=== PATIENT | female | born 1970 | race Two or more races ===

== ENCOUNTER 2022-08-01 10:54 | Inpatient (IN) | payer OTHER ==
[~2022-08-01] VITALS: Ht 160 cm; Wt 119.2 kg
[2022-08-01 12:04] LABS: Basophils # (auto) 0 10 ^3/uL (0-0.2); Basophils % (auto) 0.4 % (0.0-2.0); Eosinophils # (auto) 0.1 10 ^3/uL (0-0.8); Eosinophils % (auto) 0.6 % (0.0-7.0); Hematocrit 41.3 % (36.0-46.0); Hemoglobin 13.6 g/dL (12.2-16.2); Lymphocytes # (auto) 1.7 10 ^3/uL (0.4-5.4); Lymphocytes % (auto) 15.5 % (10.0-50.0); Mean Corpuscular Hemoglobin 28.9 pg (28.0-32.0); Mean Corpuscular Hgb Conc. 32.9 g/dL (32.0-36.0); Mean Corpuscular Volume 87.9 fL (80.0-100.0); Monocytes # (auto) 0.9 10 ^3/uL (0-1.3); Monocytes % (auto) 7.8 % (0.0-12.0); Neutrophils # (auto) 8.5 10 ^3/uL (1.6-8.6); Neutrophils % (auto) 75.7 % (37.0-80.0); Red Cell Distribution Width 13.5 % (11.8-14.3); White Blood Cell 11.2 10^3/uL (4.4-10.8)
[2022-08-01 12:14] LABS: Albumin 3.9 g/dL (3.4-5.0); Calcium 8.8 mg/dL (8.5-10.1)
[2022-08-01] MEDS ORDERED: FAMOTIDINE (10MG/ML) 2ML VL IV ONE (12:15)
[2022-08-01] MEDS ORDERED: DexAMETHasone SOD PHOS 10MG/1ML VIAL INJ IV ONE (12:15)
[2022-08-01] MEDS ORDERED: diphenhdrAMINE HCL 50 MG/1 ML VL IV ONE (12:15)
[2022-08-01 12:17] LABS: BUN/Creatinine Ratio 7.4; Bilirubin, Total 0.9 mg/dL (0.2-1.0); Total Protein 7.6 g/dL (6.4-8.2)
[2022-08-01 14:51] LABS: Urine Bacteria FEW /hpf (None Seen); Urine Blood Negative /uL (Negative); Urine WBC 1 /hpf (0 - 5)
[2022-08-01] MEDS ORDERED: HYDROcodone-ACET 5/325MG TAB PO ONE (15:15)
[2022-08-01] MEDS ORDERED: metroNIDAZOLE 500MG/100ML 100 ML IV ONE (15:15)
[2022-08-01] MEDS ORDERED: cefTRIAXone 1GM/50ML D5W 50 ML IV ONE (15:15)
[2022-08-01] MEDS ORDERED: MORPHINE SULFATE INJ 2 MG/ml SYRG IV PRN (18:15)
[2022-08-01] MEDS ORDERED: ONDANSETRON HCL 4 MG/2 ML VIAL IV PRN (18:15)
[2022-08-01] MEDS ORDERED: DOCUSATE SOD 100 MG CAP PO PRN (18:15)
[2022-08-01] MEDS: ACETAMINOPHEN 325 MG TAB PO PRN (20:34)
[2022-08-01] MEDS: metroNIDAZOLE 500MG/100ML 100 ML IV SCH (22:31)
[2022-08-01 23:45] VITALS: BP 123/76
[2022-08-02] MEDS: ACETAMINOPHEN 325 MG TAB PO PRN (04:20)
[2022-08-02 05:00] VITALS: BP 126/78
[2022-08-02] MEDS: metroNIDAZOLE 500MG/100ML 100 ML IV SCH ×3 (05:54→22:00)
[2022-08-02] MEDS: HYDROcodone-ACET 5/325MG TAB PO PRN ×2 (06:18→15:44)
[2022-08-02 07:12] LABS: Basophils # (auto) 0 10 ^3/uL (0-0.2); Basophils % (auto) 0.4 % (0.0-2.0); Eosinophils # (auto) 0.1 10 ^3/uL (0-0.8); Eosinophils % (auto) 0.7 % (0.0-7.0); Hematocrit 38.1 % (36.0-46.0); Hemoglobin 12.9 g/dL (12.2-16.2); Lymphocytes # (auto) 1.7 10 ^3/uL (0.4-5.4); Lymphocytes % (auto) 16.2 % (10.0-50.0); Mean Corpuscular Hemoglobin 29.7 pg (28.0-32.0); Mean Corpuscular Hgb Conc. 33.9 g/dL (32.0-36.0); Mean Corpuscular Volume 87.7 fL (80.0-100.0); Monocytes # (auto) 0.8 10 ^3/uL (0-1.3); Monocytes % (auto) 7.5 % (0.0-12.0); Neutrophils # (auto) 7.9 10 ^3/uL (1.6-8.6); Neutrophils % (auto) 75.2 % (37.0-80.0); Nucleated Red Blood Cells % 0.1 %; Red Blood Cells 4.35 10^6/uL (4.0-5.20); Red Cell Distribution Width 13.6 % (11.8-14.3); White Blood Cell 10.5 10^3/uL (4.4-10.8)
[2022-08-02 07:24] LABS: Potassium 3.5 mmol/L (3.5-5.1)
[2022-08-02 07:32] LABS: Albumin 3.6 g/dL (3.4-5.0); BUN/Creatinine Ratio 12.2; Bilirubin, Total 1.2 mg/dL (0.2-1.0); Calcium 8.7 mg/dL (8.5-10.1)
[2022-08-02 07:33] LABS: INR 0.97 (0.9-1.15)
[2022-08-02 08:00] VITALS: BP 133/74
[2022-08-02] MEDS: cefTRIAXone 1GM/50ML D5W 50 ML IV SCH (09:42)
[2022-08-02 13:00] VITALS: BP 140/63
[2022-08-02 16:51] VITALS: BP 155/71
[2022-08-02 22:00] VITALS: BP 126/57
[2022-08-03 05:00] VITALS: BP 129/51
[2022-08-03] MEDS: metroNIDAZOLE 500MG/100ML 100 ML IV SCH ×2 (05:21→14:00)
[2022-08-03 09:00] VITALS: BP 119/60
[2022-08-03] MEDS: cefTRIAXone 1GM/50ML D5W 50 ML IV SCH (10:50)
[2022-08-03 13:00] VITALS: BP 149/77
[2022-08-03] MEDS ORDERED: METR500T PO (13:05)
[2022-08-03] MEDS ORDERED: LEVO-28 PO (13:05)
[2022-08-03 16:35] VITALS: BP 149/77
== END 2022-08-03 17:32 | disposition home or self-care (01) | DRG 392 ==
LOC: ER 10:54 → OVERFLOW 18:12 → WEST WING 23:25 → CENTRAL 08-02 17:02
PROVIDERS: ADMIT Nurse Practitioner Family; ATTEND Hospitalist
DX: K57.32 Diverticulitis of large intestine without perforation or abscess without bleeding (principal); Z68.41 Body mass index [BMI] 40.0-44.9, adult; K52.9 Noninfective gastroenteritis and colitis, unspecified; E66.9 Obesity, unspecified; R16.0 Hepatomegaly, not elsewhere classified; Z20.822 Contact with and (suspected) exposure to COVID-19; K42.9 Umbilical hernia without obstruction or gangrene; K76.0 Fatty (change of) liver, not elsewhere classified; Z91.041 Radiographic dye allergy status; Z91.013 Allergy to seafood; Z79.899 Other long term (current) drug therapy
CPT/HCPCS: 36415; 74176; 76705; 80053; 81001; 81025; 83690; 84484; 84702; 85025; 85610; 85730; 96365; 96368; G0378; J0696; J3490